=== PATIENT | male | born 1990 | race Caucasian/White ===

== ENCOUNTER 2019-02-19 20:41 | Emergency (ER) | payer MEDICAID ==
[2019-02-19] MEDS ORDERED: 0.9 % SODIUM CHLORIDE 1,000 ML BAG IV ONE (21:08)
--- NOTE | 2019-02-19 21:16 | Emergency Department Record ---
History of Present Illness - General Chief Complaint: Abdominal Pain Stated Complaint: UPPER ABD PAIN Time Seen by Provider: 02/19/19 20:48 Source: Patient Mode of Arrival: Ambulatory Limitations: No limitations - History of Present Illness Initial Comments: pt is having ruq ap for a month. he went to the [facility] and they sent him here. he had his gb out 2 yrs ago. he has no other symptoms MD Complaint: Abdominal pain Onset/Timin -: Month(s) Location: RUQ Radiation: None Severity: Moderate Severity scale (1-10): 8 Quality: Aching Improves With: Nothing Worsens With: Nothing Associated Symptoms: Denies other symptoms - Related Data Home Medications Medication Instructions Recorded Confirmed Last Taken No Home Med [NO HOME MEDS] 02/19/19 02/19/19 Unknown Allergies Allergy/AdvReac Type Severity Reaction Status Date / Time cefaclor [From Ceclor] Allergy Unknown PT UNSURE Unverified 10/30/16 10:45 OF REACTION Penicillins Allergy Unknown PT UNSURE Unverified 10/30/16 10:45 OF REACTION Travel Screening - Travel/Exposure Within Last 30 Days Have you traveled within the last 30 days?: No Review of Systems Reviewed: No additional complaints except as noted below Constitutional: Reports: As per HPI. Denies: Chills, Fever, Malaise, Night sweats, Weakness, Weight change Eyes: Reports: As per HPI. Denies: Eye discharge, Eye pain, Photophobia, Vision change ENT: Reports: As per HPI. Denies: Congestion, Dental pain, Ear pain, Epistaxis, Hearing loss, Throat pain Respiratory: Reports: As per HPI. Denies: Cough, Dyspnea, Hemoptysis, Stridor, Wheezes Cardiovascular: Reports: As per HPI. Denies: Arrhythmia, Chest pain, Dyspnea on exertion, Edema, Murmurs, Orthopnea, Palpitations, Paroxysmal nocturnal dyspnea, Rheumatic Fever, Syncope Endocrine: Reports: As per HPI. Denies: Fatigue, Heat or cold intolerance, Polydipsia, Polyuria Gastrointestinal: Reports: As per HPI. Denies: Abdominal pain, Constipation, Diarrhea, Hematemesis, Hematochezia, Melena, Nausea, Vomiting Genitourinary: Reports: As per HPI. Denies: Dysuria, Frequency, Hematuria, Inco ntinence, Retention, Testicular pain, Testicular mass, Urgency Musculoskeletal: Reports: As per HPI. Denies: Arthralgia, Back pain, Gout, Joint swelling, Myalgia, Neck pain Skin: Reports: As per HPI. Denies: Bruising, Change in color, Change in piter r/nails, Lesions, Pruritus, Rash Neurological: Reports: As per HPI. Denies: Abnormal gait, Confusion, Headache, Numbness, Paresthesias, Seizure, Tingling, Tremors, Vertigo, Weakness Psychiatric: Reports: As per HPI. Denies: Anxiety, Auditory hallucinations, Depression, Homicidal thoughts, Suicidal thoughts, Visual hallucinations Hematological/Lymphatic: Reports: As per HPI. Denies: Anemia, Blood Clots, Easy bleeding, Easy bruising, Swollen glands Past Medical History - SOCIAL HISTORY Smoking Status: Current every day smoker Alcohol Use: None Drug Use: Occasional Drug Use Detail:: Marijuana - RESPIRATORY Hx Respiratory Disorders: No - CARDIOVASCULAR Hx Cardio Disorders: No - NEURO Hx Neuro Disorders: No - GI Hx GI Disorders: No - Hx Genitourinary Disorders: No - ENDOCRINE Hx Endocrine Disorders: No - MUSCULOSKELETAL Hx Musculoskeletal Disorders: No - PSYCH Hx Psych Problems: No - HEMATOLOGY/ONCOLOGY Hx Hematology/Oncology Disorders: No Family Medical History Any Significant Family History?: Yes Hx Cancer: Grandparents *Cancer Comment: Colon Physical Exam - General General Appearance: Alert, Oriented x3, Cooperative, Mild distress - Head Head exam: Normal inspection - Eye Eye exam: Normal appearance, PERRL, EOMI Pupils: Normal accommodation - ENT ENT exam: Normal exam, Mucous membranes moist, Normal external ear exam, Normal orophraynx Ear exam: Normal external inspection. negative: External canal tenderness Nasal Exam: Normal inspection. negative: Discharge, Sinus tenderness Mouth exam: Normal external inspection, Tongue normal Teeth exam: Normal inspection. negative: Dental caries Throat exam: Normal inspection. negative: Tonsillar erythema, Tonsillar exudate - Neck Neck exam: Normal inspection, Full ROM. negative: Tenderness - Respiratory Respiratory exam: Normal lung sounds bilaterally. negative: Respiratory distress - Cardiovascular Cardiovascular Exam: Regular rate, Normal rhythm, Normal heart sounds - GI/Abdominal GI/Abdominal exam: Soft, Normal bowel sounds, Tenderness - Rectal Rectal exam: Deferred - exam: Deferred - Extremities Extremities exam: Normal inspection, Full ROM, Normal capillary refill. negative: Tenderness - Back Back exam: Reports: Normal inspection, Full ROM. Denies: Muscle spasm, Rash noted, Tenderness - Neurological Neurological exam: Alert, CN II-XII intact, Normal gait, Oriented X3 - Psychiatric Psychiatric exam: Normal affect, Normal mood - Skin Skin exam: Dry, Intact, Normal color, Warm Course Vital Signs 02/19/19 20:46 Temperature 98.0 F Pulse Rate [ 95 H Left] Respiratory 16 Rate Blood Pressure 148/90 [Left Arm] Pulse Ox 98 Medical Decision Making - Lab Data Result diagrams: 02/19/19 21:53 02/19/19 21:53 Disposition Disposition: Discharge Clinical Impression: Renal cyst Pancreatitis Qualifiers: Chronicity: acute Pancreatitis type: unspecified pancreatitis type Acute pancr eatitis complication: no infection or necrosis Qualified Code(s): K85.90 - Acute pancreatitis without necrosis or infection, unspecified Disposition: Home, Self-Care Condition: (1) Good Instructions: Pancreatitis (ED), Kidney Cyst (ED) Additional Instructions: follow up with family doctor for further evaluation. have mri of kidney. return sooner if worse Forms: Patient Portal Access Quality - Quality Measures Quality Measures: N/A - Blood Pressure Screening Does Patient Have Any of the Following: No Blood Pressure Classification: Hypertensive Reading Systolic Measurement: 148 Diastolic Measurement: 90 Screening for High Blood Pressure: < First Hypertensive BP, F/U Documented > [G8950] First Hypertensive Follow-up Interventions: Follow-up with rescreen GT 1 day and LT 4 weeks.
[2019-02-19 22:01] LABS: ABSOLUTE NEUTROPHIL COUNT 6.97; BASO % 0.3 % (0-6); EOS % 3.6 % (0-6); GRAN % 68.3 % (47-80); HEMOGLOBIN 14.6 gm/dl (14.0-18.0); LYMPH % 20.2 % (16-45); MEAN CELL VOLUME 86.6 fl (81-97); MEAN CORPUSCULAR HEMOGLOBIN 30.1 pg (27-33); MEAN CORPUSCULAR HGB CONC 34.8 g/dl (32-36); MEAN PLATELET VOLUME 11.2 fl (7.4-10.4); MONO % 7.6 % (0-9); PLATELET COUNT 226 K/uL (130-400); RED BLOOD COUNT 4.85 M/uL (4.40-5.70); RED CELL DISTRIBUTION WIDTH 13.1 % (11.5-14.5); WHITE BLOOD COUNT W/O DIFF 10.2 K/uL (4.2-12.2)
[2019-02-19 22:14] LABS: BLOOD UREA NITROGEN 11 mg/dL (6-20); CREATININE 0.9 mg/dL (0.7-1.2); EST GLOMERULAR FILTRATION RATE > 60 mL/min
[2019-02-19 22:15] LABS: LIPASE 109 U/L (13-60); TOTAL PROTEIN 6.7 g/dL (6.6-8.7)
[2019-02-19 22:17] LABS: GLUCOSE,RANDOM 99 mg/dL (74-109)
[2019-02-19 22:19] LABS: ALT/SGPT 21 U/L (<41)
[2019-02-19 22:20] LABS: ALBUMIN 4.2 g/dL (4.0-5.0); ALKALINE PHOSPHATASE 123 U/L (40-129); AST/SGOT 17 U/L (10.0-50.0); BILIRUBIN,DIRECT < 0.2 mg/dL (0-0.3)
[2019-02-19 23:32] LABS: URINE APPEARANCE CLEAR; URINE BILIRUBIN NEGATIVE (NEGATIVE); URINE BLOOD NEGATIVE (NEGATIVE); URINE COLOR YELLOW; URINE GLUCOSE (UA) NEGATIVE (NEGATIVE); URINE KETONE NEGATIVE (NEGATIVE); URINE LEUKOCYTE ESTERASE NEGATIVE (NEGATIVE); URINE NITRITE NEGATIVE (NEGATIVE); URINE PROTEIN NEGATIVE (NEGATIVE); URINE UROBILINOGEN 0.2 E.U./dL (0.20 - 1.00)
--- NOTE | 2019-02-22 14:03 | CT SCAN REPORT ---
EXAM: CT SCAN ABDOMEN/PELVIS WO CONTRAST HISTORY: RIGHT UPPER QUADRANT ABDOMINAL PAIN. CHOLECYSTECTOMY AND APPENDECTOMY. TECHNIQUE: Axial CT scan of the abdomen and pelvis obtained without oral or IV contrast at the referring physician's request. COMPARISON: None. FINDINGS: Surgical clips in the gallbladder fossa consistent with the history of cholecystectomy, and the appendix not identified consistent with the surgical history as well. No intrarenal calculi identified on either side. No hydronephrosis or hydroureter is seen on either side with no definite ureteral calculus seen on either side and no bladder calculus evident. Evaluation of the bowel and viscera extremely limited without oral or IV contrast. Given this limitation, no definite hepatic, splenic, adrenal, pancreatic, or left renal mass identified. I suspect there is a subtle low- attenuation mass posteriorly in the right kidney measuring about 1.5 cm in size. This is probably just a right renal cyst but if not previously documented, follow-up nonemergent MRI of the kidneys would be suggested to confirm if not contraindicated. The spleen itself is somewhat generous in size measuring about 15.6 cm in AP, by 6.7 cm in transverse diameter and having a craniocaudal dimension of about 13.9 cm. Prominent degenerative disc disease seen at the lumbosacral interspace. IMPRESSION: 1. POST-OP CHOLECYSTECTOMY AND APPENDECTOMY. 2. NO DEFINITE URINARY TRACT CALCULI OR HYDRONEPHROSIS EVIDENT. PROBABLE 1.5 CM LOW-ATTENUATION MASS RIGHT KIDNEY, INCOMPLETELY EVALUATED WITHOUT IV CONTRAST, ALTHOUGH MAY WELL JUST REPRESENT A SMALL CYST. RECOMMEND FOLLOW-UP MRI IF NOT PREVIOUSLY DOCUMENTED, DESCRIBED ABOVE. 3. MILD SPLENOMEGALY. 4. DEGENERATIVE DISC DISEASE AT THE LUMBOSACRAL INTERSPACE. JOB NUMBER[facility] [id number] [facility]
== END 2019-02-20 00:07 | disposition home or self-care (01) ==
LOC: ER 20:41
DX: K85.90 Acute pancreatitis without necrosis or infection, unspecified (principal); N28.1 Cyst of kidney, acquired; R10.11 Right upper quadrant pain; F17.210 Nicotine dependence, cigarettes, uncomplicated
CPT/HCPCS: 74176; 80048; 80076; 81003; 83690; 85025; 99283; 99284